=== PATIENT | female | born 1950 | race Caucasian/White ===

== ENCOUNTER 2018-09-27 13:44 | Inpatient (IN) | payer OTHER ==
[~2018-09-27] VITALS: Ht 172.7 cm; Wt 56.7 kg
--- NOTE | ~2018-09-27 | D ---
[facility] [place] [address] DISCHARGE SUMMARY Name: ROBINSON CERDA Room #: 517-A [facility] IN M.R.#: [id number] Admission: 09/27/18 ������������������ Attend Phys: Davidson Montoya DO Discharge: 10/08/18 ������������������ Date of : 54 Report #: [id number] THIS REPORT FOR: //name// CC: Gera Montoya DATE OF SERVICE: 10/08/2018 INPATIENT PSYCHIATRIC DISCHARGE SUMMARY ATTENDING PHYSICIAN: Davidson Montoya DO. CARE WORKER AT THE TIME OF DISCHARGE: Roma Garrison APRN. 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 Medical comorbidities are minimal in this patient's case, namely, mild gastroesophageal reflux disease; other than that, minimal. DISCHARGE DIET: Regular. ACTIVITY LEVEL: As tolerated. DISCHARGE MEDICATIONS: She will be taking quetiapine fumarate 150 mg at 09:00, 13:00 and 21:00; docusate 100 mg p.o. b.i.d. for constipation and famotidine 20 mg p.o. at bedtime for heartburn. Sertraline was stopped this admission. DISPOSITION: She will be discharging to the [facility] for memory care. Psychiatric and medical care to be performed at that facility. Her brother and DPOA, Oneal, is aware of these plans. REASON FOR ADMISSION: Self-care failure, likely progressive dementia. HOSPITAL COURSE: The patient was admitted to the Adult Psychiatry Unit. The patient underwent [facility] Mental Status Examination. Her score, I believe, was a 12/30. The patient maintained poor insight. We did get decent sleep and intake from the patient. She remained focused on her , who has had a stroke and is currently in a rehab facility. At the time of discharge, the patient was not suicidal or homicidal. LABORATORY DATA: Laboratories this admission are as follows: CBC grossly normal. CMP, alkaline phosphatase 143 and ALT 27. B12 was 48. Vitamin D 33.9. All were grossly normal. Urinalysis showed some bacteria, amorphous urates and 1+ leukocyte esterase. Urine culture showed mixed urogenital jacobo. Serology, syphilis for this patient was negative. Tox screen was negative. Alcohol was negative. [facility] [address] [place] [address] DISCHARGE SUMMARY Name: ROBINSON CERDA Room #: 517-A [facility] IN .R.#: [id number] Admission: 09/27/18 ������������������ Attend Phys: Davidson Montoya DO Discharge: 10/08/18 ������������������ Date of : 54 Report #: [id number] PHYSICAL EXAMINATION: VITAL SIGNS: On the day of discharge, temperature 36.6, pulse 69, respirations 15, BP 111/69 and O2 sat 98%. When we double checked, an EKG was done; we do not always do it with quetiapine. GENERAL: This is well-developed, well-nourished female, ambulating. MENTAL STATUS EXAMINATION: Attention intact. Concentration limited. Speech, normal rate. Thought process, linear and goal directed. Thought content focused on . No psychomotor retardation. No psychomotor agitation. Affect was congruent, euthymic, fair range. Denied SI or HI. Some helplessness regarding being in this place, difficulty seeing the . No hopelessness. Denied homicidal intent or plan. Memory known to be impaired. Insight limited. Judgment limited. Fund of knowledge below average. PROGNOSIS: Prognosis of this patient is guarded given her relatively young age of 68, fairly rapidly progressive dementia, impaired. Spouse can no longer be supportive due to his medical condition. The patient was a full code this admission, but I would recommend that be reconsidered in light of her dementia. ��������������������������������������������� ���������������������������������������� By: ��������������������������������������������� [id number] Davidson Montoya, DO /nt
[2018-09-27 13:49] VITALS: BP 111/80
[2018-09-27 14:32] LABS: ABSOLUTE NEUTROPHILS 4.1 thou/uL (1.4-8.2); BASOPHILS 1.2 % (0.0-2.0); EOSINOPHILS 0.9 % (0.0-3.0); HEMATOCRIT 41.5 % (37.0-47.0); LYMPHOCYTES 24.4 % (24.0-44.0); MCH 28.4 pg (26.0-34.0); MCHC 33.6 g/dL (28.0-37.0); MCV 84.3 fL (80.0-100.0); MONOCYTES 7.2 % (1.0-8.0); PLATELET COUNT 240 thou/uL (150-400); POLYS 66.3 % (36.0-66.0); RBC 4.92 mil/uL (4.20-5.00); RDW 14.5 % (10.5-14.5); WBC 6.2 thou/uL (4.0-11.0)
[2018-09-27 14:39] LABS: URINE BILIRUBIN NEGATIVE (Negative); URINE BLOOD NEGATIVE (Negative); URINE CLARITY SL CLOUDY; URINE COLOR YELLOW; URINE GLUCOSE-RANDOM* NEGATIVE (Negative); URINE KETONES NEGATIVE (Negative); URINE LEUKOCYTES-REFLEX 1+ (Negative); URINE NITRITE-REFLEX NEGATIVE (Negative); URINE PROTEIN (DIPSTICK) NEGATIVE (Negative); URINE SPECIFIC GRAVITY 1.015 (1.005-1.035); URINE UROBILINOGEN 0.2 E.U./dl (0.2-1.0)
[2018-09-27 14:47] LABS: AMP/METHAMP Negative (Negative); BARBITURATES Negative (Negative); BENZODIAZEPINES Negative (Negative); COCAINE Negative (Negative); METHADONE Negative (Negative); OPIATES Negative (Negative); PCP Negative (Negative)
[2018-09-27 14:48] LABS: CALCIUM 9.3 mg/dL (8.5-10.1); CREATININE 0.8 mg/dL (0.6-1.0); POTASSIUM 3.9 mmol/L (3.5-5.1)
[2018-09-27 14:54] LABS: ALBUMIN 3.8 g/dL (3.4-5.0); DIRECT BILIRUBIN 0.1 mg/dL (<0.1-0.3); TOTAL BILIRUBIN 0.5 mg/dL (<0.1-1.0); TOTAL PROTEIN 7.4 g/dL (6.4-8.2)
[2018-09-27 14:58] LABS: AMORPHOUS URATES Many /LPF (None Seen); CASTS None Seen /LPF (None Seen); SQUAMOUS 0-3 Few /LPF (0-3); URINE RBC None Seen /HPF (0-2); URINE WBC-REFLEX 0-5 Rare /HPF (0-5)
[2018-09-27] MEDS ORDERED: ZOLOFT25 MG PO (15:07)
[2018-09-27 16:03] VITALS: BP 156/69
[2018-09-27 17:40] VITALS: BP 151/62
[2018-09-27 19:37] VITALS: BP 147/69
--- NOTE | 2018-09-27 19:48 | NUR ---
PATIENT IS AN 68 YEAR OLD FEMALE WHO ARRIVED TO THE SENIOR BEHAVIORAL UNIT FROM [facility] AT 1850 HOURS. PATIENT IS ALERT AND ORIENTED X 3-4, UP AND AMBULATES WITH STEADY GAIT. PATIENT ORIENTED TO ROOM, BATHROOM, UNIT, AND STAFF. ACCORDING TO REPORT, PATIENT IS HERE FOR INCREASE DEPRESSION, AND SUICIDAL IDEATION TO THROW SELF OUT OF WINDOW, OR USE HER CAR TO KILL SELF. REPORT ALSO STATES THAT PATIENT HAS MOOD SWING, THROWING OBJECTS ACROSS THE ROOM. REPORT ALSO STATES THAT PATIENT HAS HISTORY OF BIPOLAR, DEPRESSION, CONFUSION AND ANXIETY, WAS NOT TAKING CARE OF HERSELF. PATIENT HAS DPOA, ACCORDING TO DR. GARCIA, DPOA PAPERWORK IS ACTIVATED. OTHER MEDICALL HISTORY INCLUDE FIBROMYALGIA, AND FATIGUE SYNDROM. PATIENT IS PLEASANT, COOPERATIVE WITH ASSESSMENT QUESTIONS. PATIENT DENIES SUICIDAL AND HOMOCIDAL IDEATION. PATIENT IS JUST NOT HAPPY TO BE HERE, SHE STATES "I DON'T DESERVE TO BE HERE, THIS IS MAKING ME INSANE, I AM A BUSY PERSON, DON'T HAVE TO BE LOCKED-UP LIKE THIS". PATIENT DENIES HAVING PHYSICAL PAIN. LCTA, RESPIRATION EVEN/UNLABORED. BS+X4, ABD SOFT, NON-TENDER TO TOUCH. DIETARY BROUGHT PATIENT'S SUPPER, SHE REFUSED. PATIENT LIKE TO BE CALLED "KALEY". PATIENT IS WORRIED BECAUSE THERE IS NO TV IN THE ROOM, ENCOURAGED TO GO TO DAY ROOM TO WATCH TV. NO SIGN OF ACUTE DISTRESS NOTED AT THIS TIME. PATIENT'S JEWELRIES IS GIVEN TO SECURITY FOR SAFE KEEP, WILL MONITOR FOR SAFETY.
[2018-09-27 20:28] VITALS: BP 121/60
--- NOTE | 2018-09-27 22:48 | NUR ---
ASSUMED CARE OF THE PT AT 191 PM. ALERT ET ORIENTED X 4. MAKES NEEDS KNOWN. HEART RATE REGULAR, LUNGS CLEAR BILATERALLY, RESP., EVEN, AND UNLABORED. +BS HEARD IN ALL 4 QUADRANTS. ABD FLAT, NON TENDOR TO TOUCH. DENIES ANXIETY, DEPRESSION, DENIES SI/HI, A/V HALLUNICATIONS. WALKS WITH A STEADY GAIT, DENIES PAIN. [address] FOR THE PT FOR HER SAFETY.
[2018-09-28 07:38] VITALS: BP 116/75
[2018-09-28 08:29] VITALS: BP 145/70
--- NOTE | 2018-09-28 11:13 | NUR ---
PATIENT IS ALERT AND ORIENTED X 3-4, UP AND OUT ON THE UNIT FOR BREAKFAST, APPETITE FAIR, CONSUMED ABOUT 25% OF BREAKFAST, " I AM NOT A BIG EATER". LCTA, RESP EVEN/UNLABORED, NO SOA OR CYANOSIS NOTED. BS+X4, ABD SOFT, NON-TENDER TO TOUTCH. PATIENT'S GOAL TODAY IS TO GET DRESSED, AND WALK AROUND. HER CONCERN IS HOW TO KEEP BUSY DURING THE DAY, "I AM A VERY BUSY PERSON". PATIENT DENIES SUICIDAL AND HOMOCIDAL IDEATION. SHE RATED ANXIETY 5/10, DEPRESSION 4/10 "THIS PLACE COULD PUT ONE INTO DEPRESSION". PATIENT DENIES HAVING PHYSICAL PAIN, AUDITORY/VISUAL HALLUCINATION. PATIENT STATES SHE HAD A GOOD NIGHT REST, HAD BOWEL MOVEMENT ON 09/27/18. PATIENT ENCOURAGED TO COME TO STAFF WITH ANY CONCERN, WILL MONITOR FOR SAFETY.
--- NOTE | 2018-09-28 18:13 | NUR ---
SW assisted pt to call her in [facility] [phone], she is very concerned that he is failing and she needs to be there. Agapito redirected her to wait for the weekend Sw to speak with the extended family.
[2018-09-28 19:36] VITALS: BP 116/89
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
[2018-09-29 10:23] VITALS: BP 130/83
[2018-09-29 10:34] VITALS: BP 130/83
--- NOTE | 2018-09-29 16:07 | NUR ---
PATIENT HAS BEEN VERY ANXIOUS AND DISTRAUGHT OVER INABILITY TO LEAVE AND CARE FOR AT NURSING FACILITY. REASSURANCE LASTS FOR A SHORT TIME WHERE SHE CALMS AND ABLE TO CONVERSE THEN BECOMES TEARFUL ONCE AGAIN. SHE HAS HAD EPISODES WHERE SHE IS RUNNING AROUND HYPEVERBAL AND VERY RESTLESS. PATIENT CALMS WHEN STAFF LISTENS TO PATIENT AND PROVIDES EMPATHY. PATIENT CONFUSED EARLIER THIS AFTERNOON THINKING SHE WAS WORKING HERE. ONCE CALM SHE IS VERY CAREGIVING AND ASSUMES RESPONSIBILITY FOR UNIT AND PEERS. 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 STAFF CONTACTED FERNY MARTINEZ AT 0420 FOR MEDICATION FOR ANXIETY - ORDERED VISTERAL 25MG. PO FOR ANXIETY ONE TIME DOSE. WILL MONITOR TO SEE HOW EFFECTIVE MEDICATION IS.
[2018-09-29 19:53] VITALS: BP 149/91
--- NOTE | 2018-09-29 23:07 | NUR ---
Care assumed of patient at 1900: Patient up ambulating ad roxana about the unit. Patient alert and oriented x3. Patient being intrusive with other peers. Patient needed re-direction multiple times to stay out of other peers rooms, allow for staff to assist other patients, to keep her hands to herself. Patient states that she can't help she is a loving Roman Catholic woman. Patient hyperverbal at start of shift. Hyperactive, jumping up and down, yelling, crying. Patient fixated on having to leave the hospital now to see her . Patient approaching staff face to face, screaming "you don't understand". Patient needing reminders to respect personal boundaries. Attempted to assist patient to her room to have some quiet time. Patient would not de-escalate. FLUID JET CUTTER OPERATOR Vijay notified. Order obtained for Zyprexa 10mg po 1x dose. Patient took PO medication with constant encouragement. Patient was not able to breath, stop and focus to take oral tablets. Once patient took PO medication, she looked out the window and cried for several minutes. After approximately 45 minutes, patient was more calm and able to speak one on one with staff. Patient came out of her room this evening when she was getting ready for bed and was holding $100.00 bill in her hand. Patient stated that she had found it in her pants. Valuables envelope filled out and money is now with security for safe keeping. Patient is getting ready for bed and spending time in her room at this time.
[2018-09-30 10:06] VITALS: BP 146/75
--- NOTE | 2018-09-30 10:14 | NUR ---
Assumed pt care this am, pt is steady in her gain and ambulates on her own with no aids. Pt was anxious but pleasant to talk to and is easily redirected, pt stressed that she need to go and see her who has been sick and tiff to another facility to take care of him. Pt like having long conversations with the staff and has a calmer demeanor when she does. Attended the group therapy games in the am and participated well. DARIAN beyer
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
[2018-09-30 19:29] VITALS: BP 143/72
--- NOTE | 2018-09-30 22:48 | NUR ---
Care assumed of patient at 1900: Patient up ambulating about day room at start of shift. Patient hyperactive. Patient sitting on the floor, speaking with other peers and staff. Patient hyperverbal. During assessment, patient jumping from one topic to the other, flight of ideas. Patient discussing random topics that were not pertinent to the conversation or questions asked. Patient talking about the weather, her , her working as a team on this unit which is the 2nd and 3rd line. Patient had difficulty focusing and was disorganized. Patient needed re-direction multiple times. Patient started to get into a verbal argument with another peer. Patient was asked to go to her room with staff. Patient was able to take several deep breaths then return to the [place] without any further arguing. Patient became tearful when talking about losing her 2nd child and fear of losing her . Patient also spoke of a hx of multiple abdominal surgeries and having metal mesh located in her lower abdomen. Patient then stated that there is metal mesh attempting to leave her body. Patient denies any pain or discomfort. Patient alert and oriented to person only. Patient confused and forgetful this evening, despite re-orientation provided. Patient reports that she just wants to be a better person and be happy with herself. Patient went to bed at a reasonable hour and appears to be resting well at this time.
[2018-10-01 07:52] VITALS: BP 158/89
[2018-10-01 11:26] VITALS: BP 158/89
--- NOTE | 2018-10-01 11:36 | NUR ---
ASSUMED CARE AT 0700 TODAY. PT. STABLE, UP, DRESSED AND IN THE DINING ROOM FOR MEALS. HAS BEEN VERY POLITE, COOPERATIVE WITH STAFF. TTOK HER MEDS WITHOUT PROBLEMS.
[2018-10-01 19:54] VITALS: BP 125/69
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
[2018-10-02 08:08] VITALS: BP 130/82
[2018-10-02 09:38] VITALS: BP 130/82
--- NOTE | 2018-10-02 13:44 | NUR ---
CT OF HEAD COMPLETED, 50MG SEROQUEL GIVEN TO PATIENT PRIOR TO GOING TO RADIOLOGY PER ORDER, SHE TOLERATED PROCEDURE WELL, AWAITING RESULT. PATIENT REMAIN ALERT AND ORIENTED, X3-4, UP AND OUT ON THE UNIT, GAIT STEADY. PATIENT TOOK ALL MEDICATION WHOLE WITHOUT DIFFICULTY. SHE IS EAING MEALS, AND DRINKING FLUID WELL. PATIENT DENIES SUICIDAL AND HOMOCIDAL IDEATION. SHE RATED DEPRESSION 5/10, ANXIETY 6.5/10. SHE DENIES HAVING PHYSICAL PAIN. PATIENT'S GOAL TODAY IS TO CONTINUE TRYING TO STAY POSITIVE, SHE IS WORRIED ABOUT HER SICK "HEALTH ISSUES ARE DECLINNING". PATIENT ENCOURAGED TO FOCUS ON HER GETTING BETTER SO TO BE ABLE TO CARE FOR HER SICK SPOUSE, SHE VERBALIZES UNDERSTANDING. PATIENT REMAIN HYPERACTIVE, IMPULSIVE, AND ANXIOUS. AFFECT IS TANGENTIAL, WITH DISORGANIZED THOUGHTS. NO AGGRESSION OR AGITATION NOTED AT THIS TIME, WILL MONITOR FOR SAFETY.
[2018-10-02 19:10] LABS: SYPHILIS AB Negative (Negative)
[2018-10-02 20:56] VITALS: BP 144/75
--- NOTE | 2018-10-03 03:50 | NUR ---
Assumed pt care at 1900. Pt A/O 2-3,hyperactive in the day room trying to help every patient before going to bed.Also noted to have flight of ideas when talking from ,work as well as attending [employer].Denies SI/HI or feeling depressed and praying to get better.Up ad roxana independently around unit.Denies pain. Resting in bed at this time will continue to monitor pt.
[2018-10-03 08:00] VITALS: BP 134/71
--- NOTE | 2018-10-03 16:29 | NUR ---
PATIENT HAS BEEN UP AND OUT ON THE UNIT, INTERACTING WITH PEERS, AND STAFF. PATIENT IS IMPULSIVE, HYPERVERBAL, INTRUSIVE, FLIGHT OF IDEAS, JUMPING FROM ONE ONE SUBJECT TO ANOTHER, COMPLIANT WITH CARE. PATIENT TAKES MEDICATION WHOLE WITHOUT DIFFICULTY. SHE IS EATING MEALS AND DRINKING FLUID WELL. PATIENT DENIES SUICIDAL AND HOMOCIDAL IDEATION. SHE RATED DEPRESSION 4/10, ANXIETY 5/10. PATIENT DENIES HAVING PHYSICAL PAIN, STATES "I HAVE HEART PAIN, I HAVE A SICK ". PATIENT ENCOURAGED TO STAY FOCUSED ON HER GETTING BETTER TO BE ABLE TO CARE FOR SICK SPOUSE. PATIENT IS EASILY DISTRACTED, PATIENT'S GOAL TODAY IS TO "STAY FOCUSED AND POSITIVE". NO SIGN OF ACUTE DISTRESS NOTED, WILL MONITOR FOR SAFETY.
[2018-10-03 19:28] VITALS: BP 125/59
--- NOTE | 2018-10-03 19:41 | NUR ---
ASSUMED CARE OF THE PT AT 191 PM. ALERT ET ORIENTED X 3. MAKES NEEDS KNOWN. WALKS WITH A STEADY GAIT. DENIES PAIN AT THIS TIME, ANXIETY, DEPRESSION, A/V HALLUNICATIONS. HEART RATE REGULAR, LUNGS CLEAR BILATERALLY, RESP., EVEN, AND UNLABORED. +PP BILATERALLY. ABD SOFT ET NONTENDOR. DENIES RACING THOUGHTS AND NIGHTMARES. REMAINS ON 12 MINUTE CHECKS FOR HER SAFETY,
--- NOTE | 2018-10-04 01:48 | NUR ---
THE PT APPEARS TO HAVE BEEN SLEEPING THIS SHIFT. RESP., EVEN, AND UNLABORED. REMAINS ON 12 MINUTE CHECKS FOR HER SAFETY.
--- NOTE | 2018-10-04 05:52 | NUR ---
THE PT SLEPT 7 HOURS LAST NIGHT. NO DISTRESS NOTED AT THIS TIME.
[2018-10-04 07:50] VITALS: BP 126/76
--- NOTE | 2018-10-04 10:44 | NUR ---
ASSUMED PATIENT CARE AT 0700. PATIENT UP FOR BREAKFAST PER SELF. COOPERATIVE MOOD, SMILING AFFECT, COMPLIANT WITH MEDICATIONS. TAKES MEDS WHOLE WITH WATER. PARTICIPATED IN R.T. GROUP AND MORNING GOALS.
[2018-10-04 15:18] VITALS: BP 126/76
--- NOTE | 2018-10-04 18:05 | NUR ---
QUETIAPINE DOSE CHANGED FROM 100MG PO, TO 125 MG PO. DOSE AT 1700 OF 125 ADMINISTERED ORDERED. PREVIOUS ORDER DISCONTINUED.
[2018-10-04 19:30] VITALS: BP 150/58
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
[2018-10-05 01:48] VITALS: BP 150/58
--- NOTE | 2018-10-05 01:51 | NUR ---
TOOK 2100 MEDS WITHOUT DIFFICULTY, WHOLE WITH WATER. RETIRED TO BED AND IS SLEEPING OF THIS WRITING. WILL CONTINUE TO MONITOR Q 12 MINUTES FOR PATIENT SAFETY.
--- NOTE | 2018-10-05 05:55 | NUR ---
SLEEPING OF THIS WRITING AND SLEPT A TOTAL OF 8 HOURS.
[2018-10-05 08:40] VITALS: BP 115/68
--- NOTE | 2018-10-05 08:56 | NUR ---
PATIENT UP ON UNIT FOR BREAKFAST. APPETITE GOOD. DENIES ANY S/I - STATED STILL DEPRESSED. DOES NOT WANT TO LIVE IN NURSING FACILITY. VERY INDEPENDENT AND PRIVATE PERSON AND DOES NOT WANT TO BE AROUND ALOT OF PEOPLE. CLAIMS DOES FEEL BETTER CURRENTLY. SOCIAL WITH PEERS - ENGAGING - NO PAIN WHEN QUESTIONED. SLEPT WELL. MEDICATION COMPLIANT. VERY APPRECIATIVE OF HELP GIVEN HER BY STAFF AND PHYSICIANS. CURRENTLY OUT IN MORNING GROUP. AFFECT BRIGHT NOW AND MOOD ALITTLE SULLEN ABOUT NOT BEING ABLE TO RETURN HOME.
[2018-10-05 09:20] VITALS: BP 115/68
--- NOTE | 2018-10-05 16:10 | NUR ---
MAGED spoke with Sneha at [facility] concerning pt d/c on October 08, 2018. Sneha mention that the pt furniture was been delivered today, and the [facility] will be ready to recieve the pt. MAGED explained that the pt brother Oneal will be transport pt. MAGED will follow-up with pt upon d/c.
[2018-10-05 19:28] VITALS: BP 105/69
--- NOTE | 2018-10-06 03:18 | NUR ---
ASSUMED CARE @ 1900, IN DINING ROOM WALKING AROUND INTERACTING WITH PEERS. COOPERATED WITH ASSESSMENT, HRRR, LUNGS CTA, ABD NORMOACTIVE BOWEL SOUNDS, REPORTS SMALL HARD BM TODAY. TOOK 2100 MEDS WHOLE WITH WATER. REPORTS WORRIED ABOUT GOING TO [facility]. CALLED AND PT REPORTS THAT SHE ENJOYED TALKING TO . DOCUSATE SODIUM PROVIDED FOR CONSTIPATION. TALKED ABOUT HER CONCERNS REGARDING GOING TO A [facility]. SHE REPORTS CONCERNS ABOUT HAVING TO GO WHEN HER CHOICE WOULD BE TO GO HOME BY HERSELF. ENCOURAGED TO GIVE IT A CHANCE AND AN OPEN MIND, PT REPORTS BEING ANXIOUS ABOUT THE PLACEMENT.
--- NOTE | 2018-10-06 07:28 | NUR ---
SLEPT 8 HOURS OVERNIGHT.
[2018-10-06 08:10] VITALS: BP 135/73
--- NOTE | 2018-10-06 13:46 | NUR ---
PATIENT IS UP AND OUT ON THE UNIT, SHE IS ALERT, FORGETFUL, CONFUSED AT TIMES. PATIENT TAKES MEDICATION WHOLE WITHOUT DIFFICULTY. SHE IS EATING MEALS, AND DRINKING FLUID WELL. PATIENT DENIES SUICIDAL AND HOMOCIDAL IDEATION. AFFECT IS FLAT, MOOD IS DEPRESSED. PATIENT STATES SHE IS WORRIED ABOUT HER SICK , AND THAT SHE WANTS TO GO HOME AND BE WITH "MY FAMILY". PATIENT DENIES HAVING PHYSICAL PAIN. SHE PARTICIPATES IN GROUP THERAPY, NO SIGN OF ACUTE DISTRESS NOTED AT THIS TIME, WILL MONITOR FOR SAFETY.
[2018-10-06 19:42] VITALS: BP 123/62
[2018-10-07 00:56] VITALS: BP 123/62
--- NOTE | 2018-10-07 04:54 | NUR ---
PT OUT WITH PEERS EARLY IN SHIFT, INTERACTING WELL. AFTER SNACKS AND MEDS WENT TO ROOM, AND SLEPT WELL THROUGH THE NIGHT W/O PROBLEM.
--- NOTE | 2018-10-07 08:58 | NUR ---
ASSUMED PATIENT CARE AT 0700. PATIENT UP WITH ONE ASSIST FOR BREAKFAST WITHOUT DIFFICULTY. ATE 50% OF BREAKFAST, TOOK MEDICATIONS IN [place] WITH ENCOURAGEMENT FROM THIS NURSE. ATTENDING A.M. GROUP AT THIS TIME.
[2018-10-07 09:12] VITALS: BP 134/77
[2018-10-07 12:11] VITALS: BP 134/77
--- NOTE | 2018-10-07 14:52 | NUR ---
MAGED sent weekend updates to [facility] [phone].
--- NOTE | 2018-10-07 15:49 | NUR ---
SW called [employer] [phone] and forklift picker will be at 1pm per family request. pt family called and stated that this was the agreed time for the d/c. [facility] is aware that they are billing [facility]
--- NOTE | 2018-10-07 18:08 | NUR ---
DR. TAWANA CISNEROS CONTACTED THIS NURSE BY PHONE. STATED THAT SHE, DR. DUNN, UNABLE TO REACH SPOUSE'S BY PHONE. REQUESTED NURSE TO PASS ALONG TO STAFF FURTHER INFORMATION R/T PATIENT'S CAST APPLICATION DATE AND DATE F/U FOR ORTHOEPEDIC DOCTOR. NURSE IMMEDIATELY TRIED MRS. COFFMAN, WHO ANSWERED. STATED THAT PATIENT WAS SCHEDULED TO SEE FARZANEH CHANCE, THE NEXT DAY AFTER ADMISSION TO [facility]. NURSE RELAYED THAT NEXT TREATMENT TEAM WILL TAKE PLACE TOMORROW, 10/08/18. DR. GARCIA AND/OR Chaparro ARORA WILL BE IN TOUCH WITH SPOUSE AFTER TX TEAM MEETING. SPOUSE ADDED THAT SHE DID NOT WANT PATIENT TO GO TO [facility] PREVIOUSLY DISCUSSED WITH MAGED Parr. SHE HAD SEEN [employer] ABOUT "WHAT PEOPLE WERE SAYING ABOUT CARE AT THERE, AND I WOULD NOT SEND A SICK ANIMAL THERE!" STILL PREFERS [facility] IN [place].
[2018-10-07 20:18] VITALS: BP 125/64
--- NOTE | 2018-10-07 23:55 | NUR ---
ASSUMED CARE @ 1900. IN DAY ROOM GETTING ICE WATER AND SOCIALIZING WITH PEERS. TOOK 2100 MEDS AND DENIES SI, HI AND HALLUCINATIONS. REPORTS WORRY RE: DISCHARGE TO LONG TERM CARE, WORRIED TO NOT BE WITH , WORRIED ABOUT OTHER PATIENTS STEPPING INTO HER ROOM WHILE SHE SLEEPS, D/T THE DOOR NOT BEING LOCKED. ASSURED THAT STAFF CHECKS ON HER Q 12 MINUTES, AND SHE SEEMED TO CALM DOWN SLIGHTLY AT THIS ASSURANCE. WILL CONTINUE TO MONITOR Q 12 MINUTES FOR PATIENT SAFETY.
--- NOTE | 2018-10-08 06:22 | NUR ---
SLEPT 6.8 HOURS OVERNIGHT.
[2018-10-08 08:18] VITALS: BP 111/69
[2018-10-08 10:31] VITALS: BP 111/69
--- NOTE | 2018-10-08 10:38 | NUR ---
ASSUMED CARE AT 0700 TODAY. SHE IS IN W/C. SHE IS STATING SHE DOES NOT WANT TO BE DISCHARGED TODAY. SHE STATES SHE IS COMFORTABLE HERE AND LIKES IT HERE. SHE KNOWS THIS IS NOT A OB/GYN DOCTOR CARE PLACEMENT THOUGH. SHE IS PLEASANT AND COOPERATIVE WITH STAFF/PEERS. SHE IS EATING WELL AND PARTICIPATES IN GROUPS. DENIES SI/HI AND AVH. NO AGITATION NOTED.
--- NOTE | 2018-10-08 12:31 | NUR ---
Patient Name: ROBINSON CERDA Admission Date: 09/27/18 DISCHARGE PLAN: Pt will d/c to [facility] Care Assessment: Pt was assessed by Dr. Montoya, and diagnosed with Depression with Behavior Disturbance. Level II Assessment: None Transportation: Pt will be transported by [facility]. Special Instructions/Notes: Pt will need a memory care unit. DISCHARGE TO FACILITY: Assisted Living memory Facility: [facility] Fax: Address: [address] [place] [phone] Contact Name: Sneha PCP: [id number] Psychiatrist: JOSE ANTONIO Psychiatrist
[2018-10-08] MEDS ORDERED: SEROQUEL 100 M100 M1 PO (12:55)
[2018-10-08] MEDS ORDERED: PEPCID20 MG PO (12:55)
[2018-10-08] MEDS ORDERED: COLACE 100 MG100 MG PO (12:55)
== END 2018-10-08 13:00 | DRG 884 ==
LOC: ER 13:44 → SBH 15:33 → EROBS 15:33 → SBH 16:03
PROVIDERS: Emergency Medicine; ADMIT Psychiatry & Neurology Psychiatry
DX: F01.51 Vascular dementia, unspecified severity, with behavioral disturbance (principal); K21.9 Gastro-esophageal reflux disease without esophagitis
CPT/HCPCS: 10880